=== PATIENT | female | born 1975 ===

== ENCOUNTER 2022-02-04 15:50 | Emergency (ER) | payer SELFPAY ==
[2022-02-04] MEDS ORDERED: SODIUM CHLORIDE 0.9% 1000 ML 1,000 ML IV ONE (17:12)
--- NOTE | 2022-02-04 17:49 | XRay Report ---
XR chest 1V ap INDICATION / CLINICAL INFORMATION: Altered Mental Status. COMPARISON: None available. FINDINGS: SUPPORT DEVICES: None. HEART /PULMONARY VASCULATURE: No significant abnormality. LUNGS / PLEURA: No significant pulmonary or pleural abnormality. No pneumothorax. ADDITIONAL FINDINGS: No significant additional findings. IMPRESSION: 1. No acute findings. Signer Name: Papa Ross MD Signed: 02/04/2022 5:45 PM Workstation Name: [email or web address]
[2022-02-04 20:02] LABS: Basophils % (Auto) 0.3 % (0.0-1.8); Eosinophils % (Auto) 0.1 % (0.0-4.3); Hematocrit 44.4 % (30.3-42.9); Hemoglobin 14.5 gm/dl (10.1-14.3); Lymphocytes # (Auto) 1.8 K/mm3 (1.2-5.4); Mean Corpuscular HGB Conc 33 % (30-34); Mean Corpuscular Volume 87 fl (79-97); Monocytes # (Auto) 0.3 K/mm3 (0.0-0.8); Platelet Count 330 K/mm3 (140-440); Red Blood Count 5.12 M/mm3 (3.65-5.03); Red Cell Distribution Width 14.2 % (13.2-15.2)
[2022-02-04 20:06] LABS: INR 0.92 (0.87-1.13)
[2022-02-04 20:41] LABS: Alanine Aminotransferase 11 units/L (7-56); Albumin 4.9 g/dL (3.9-5); BUN/Creatinine Ratio 12; Blood Urea Nitrogen 6 mg/dL (7-17); Calcium 8.1 mg/dL (8.4-10.2); Hemolysis Index 15
[2022-02-04] MEDS ORDERED: THIAMINE 100 MG, FOLIC ACID 1 MG, MULTIPLE VITAMIN INJ, ADULT 10 ML in SODIUM CHLORIDE ... IV ONE (20:42)
--- NOTE | 2022-02-04 20:55 | Emergency Department Report ---
<LIDIA OSPINA - Last Filed: 02/05/22 03:20> ED Alcohol HPI - General Chief Complaint: Alcohol Stated Complaint: ALTERED MENTAL STATUS Time Seen by Provider: 02/04/22 17:09 - Related Data Previous Rx's Medication Instructions Recorded Last Taken Type Multivitamin with Folic Acid [[facility] 400 mcg PO QDAY #30 tablet 02/05/22 Unknown Rx One Daily Essential Tablet] Ondansetron [Zofran Odt] 4 mg PO Q8HR PRN #20 tab.rapdis 02/05/22 Unknown Rx chlordiazePOXIDE [Librium] 25 mg PO Q6H PRN #25 capsule 02/05/22 Unknown Rx Allergies Allergy/AdvReac Type Severity Reaction Status Date / Time No Known Allergies Allergy Verified 02/04/22 16:01 ED Past Medical Hx - Medications Home Medications: Home Medications Medication Instructions Recorded Confirmed Last Taken Type Multivitamin with Folic Acid [[facility] 400 mcg PO QDAY #30 tablet 02/05/22 Unknown Rx One Daily Essential Tablet] Ondansetron [Zofran Odt] 4 mg PO Q8HR PRN #20 tab.rapdis 02/05/22 Unknown Rx chlordiazePOXIDE [Librium] 25 mg PO Q6H PRN #25 capsule 02/05/22 Unknown Rx ED Course - Reevaluation(s) Reevaluation #1: 02/05/22 03:21 Patient awake and able to stand up. She is mildly nauseous. CT scan brain and cervical spine negative for acute findings. Vital signs unremarkable. She can follow-up with outpatient primary care for incidental thyroid findings. Dehydration/metabolic acidosis, likely secondary to alcohol intoxication, as well as dehydration ED Medical Decision Making - Lab Data Result diagrams: 02/04/22 19:26 02/04/22 19:26 Vital Signs 02/04/22 02/04/22 02/04/22 15:57 16:19 16:30 Temperature Pulse Rate 95 H 92 H 94 H Respiratory 14 14 15 Rate Blood Pressure 116/69 Blood Pressure 129/77 [Left] O2 Sat by Pulse 99 99 99 Oximetry 02/04/22 02/04/22 02/04/22 16:44 16:46 17:00 Temperature 98.4 F Pulse Rate 99 H 103 H 97 H Respiratory 16 15 15 Rate Blood Pressure 117/77 117/77 116/73 Blood Pressure [Left] O2 Sat by Pulse 100 99 99 Oximetry 02/04/22 02/04/22 02/04/22 17:15 17:30 17:46 Temperature Pulse Rate 95 H 113 H 100 H Respiratory 16 17 16 Rate Blood Pressure 116/73 133/85 116/73 Blood Pressure [Left] O2 Sat by Pulse 98 99 99 Oximetry 02/04/22 02/04/22 02/04/22 18:00 18:16 18:30 Temperature Pulse Rate 106 H 116 H 99 H Respiratory 15 15 16 Rate Blood Pressure 136/86 132/79 132/84 Blood Pressure [Left] O2 Sat by Pulse 100 100 100 Oximetry 02/04/22 02/04/22 02/04/22 18:46 19:00 19:16 Temperature Pulse Rate 104 H 92 H 105 H Respiratory 17 6 L 14 Rate Blood Pressure 127/78 134/82 126/81 Blood Pressure [Left] O2 Sat by Pulse 96 97 Oximetry 02/04/22 02/04/22 02/04/22 19:30 19:46 20:00 Temperature Pulse Rate 107 H 108 H 107 H Respiratory 14 16 24 Rate Blood Pressure 132/83 132/79 128/77 Blood Pressure [Left] O2 Sat by Pulse 98 98 99 Oximetry 02/04/22 02/04/22 02/04/22 20:16 20:30 20:46 Temperature Pulse Rate 101 H 111 H 117 H Respiratory 13 16 16 Rate Blood Pressure 118/74 110/71 121/79 Blood Pressure [Left] O2 Sat by Pulse 99 97 98 Oximetry 02/04/22 02/04/22 02/04/22 21:00 21:16 21:30 Temperature Pulse Rate 123 H 117 H 118 H Respiratory 20 21 17 Rate Blood Pressure 131/81 119/83 127/79 Blood Pressure [Left] O2 Sat by Pulse 100 99 100 Oximetry 02/04/22 02/04/22 02/04/22 21:46 22:00 22:16 Temperature Pulse Rate 122 H 112 H 110 H Respiratory 16 16 15 Rate Blood Pressure 128/77 120/74 130/75 Blood Pressure [Left] O2 Sat by Pulse 99 99 99 Oximetry 02/04/22 02/04/22 02/04/22 22:30 22:42 22:45 Temperature Pulse Rate 111 H 105 H 105 H Respiratory 26 H 19 22 Rate Blood Pressure 123/74 130/75 123/74 Blood Pressure [Left] O2 Sat by Pulse 100 100 100 Oximetry 02/04/22 02/04/22 02/04/22 22:53 23:00 23:16 Temperature Pulse Rate 107 H 107 H 107 H Respiratory 13 16 18 Rate Blood Pressure 120/76 112/71 Blood Pressure [Left] O2 Sat by Pulse 99 99 99 Oximetry 02/04/22 02/04/22 02/05/22 23:30 23:45 00:06 Temperature Pulse Rate 109 H 106 H 96 H Respiratory 17 18 15 Rate Blood Pressure 118/73 118/73 112/71 Blood Pressure [Left] O2 Sat by Pulse 99 100 Oximetry 02/05/22 02/05/22 02/05/22 00:16 00:30 00:46 Temperature Pulse Rate 100 H 103 H 101 H Respiratory 11 L 16 15 Rate Blood Pressure 109/72 102/60 118/73 Blood Pressure [Left] O2 Sat by Pulse Oximetry 02/05/22 02/05/22 02/05/22 01:00 01:16 01:30 Temperature Pulse Rate 101 H 96 H 95 H Respiratory 15 14 14 Rate Blood Pressure 97/55 117/78 116/78 Blood Pressure [Left] O2 Sat by Pulse 99 98 Oximetry 02/05/22 02/05/22 02/05/22 01:46 02:00 02:16 Temperature Pulse Rate 92 H 87 87 Respiratory 14 12 14 Rate Blood Pressure 117/78 118/75 115/76 Blood Pressure [Left] O2 Sat by Pulse 99 98 98 Oximetry 02/05/22 02/05/22 02/05/22 02:30 02:46 03:00 Temperature Pulse Rate 86 92 H 98 H Respiratory 14 15 14 Rate Blood Pressure 116/79 118/77 125/79 Blood Pressure [Left] O2 Sat by Pulse 99 99 99 Oximetry Lab Results 02/04/22 02/04/22 02/04/22 Range/Units 19:26 19:26 19:26 WBC 6.5 (4.5-11.0) K/mm3 RBC 5.12 H (3.65-5.03) M/mm3 Hgb 14.5 H (10.1-14.3) gm/dl Hct 44.4 H (30.3-42.9) % MCV 87 (79-97) fl MCH 28 (28-32) pg MCHC 33 (30-34) % RDW 14.2 (13.2-15.2) % Plt Count 330 (140-440) K/mm3 Lymph % (Auto) 27.0 (13.4-35.0) % [place] % (Auto) 5.0 (0.0-7.3) % Eos % (Auto) 0.1 (0.0-4.3) % Baso % (Auto) 0.3 (0.0-1.8) % Lymph # (Auto) 1.8 (1.2-5.4) K/mm3 [place] # (Auto) 0.3 (0.0-0.8) K/mm3 Eos # (Auto) 0.0 (0.0-0.4) K/mm3 Baso # (Auto) 0.0 (0.0-0.1) K/mm3 Seg Neutrophils % 67.6 (40.0-70.0) % Seg Neutrophils # 4.4 (1.8-7.7) K/mm3 PT (12.2-14.9) Sec. INR (0.87-1.13) Sodium 147 H (137-145) mmol/L Potassium 4.0 (3.6-5.0) mmol/L Chloride 112.2 H (98-107) mmol/L Carbon Dioxide 15 L (22-30) mmol/L Anion Gap 24 mmol/L BUN 6 L (7-17) mg/dL Creatinine 0.5 L (0.6-1.2) mg/dL Estimated GFR > 60 ml/min BUN/Creatinine Ratio 12 % Glucose 107 H (65-100) mg/dL Calcium 8.1 L (8.4-10.2) mg/dL Magnesium 2.10 (1.7-2.3) mg/dL Total Bilirubin 0.20 (0.1-1.2) mg/dL AST 17 (5-40) units/L ALT 11 (7-56) units/L Alkaline Phosphatase 113 (35-129) units/L Total Creatine Kinase 90 (30-135) units/L Troponin T < 0.010 (0.00-0.029) ng/mL Total Protein 7.5 (6.3-8.2) g/dL Albumin 4.9 (3.9-5) g/dL Albumin/Globulin Ratio 1.9 % Lipase 24 (13-60) units/L Salicylates (2.8-20.0) mg/dL Acetaminophen (10.0-30.0) ug/mL Plasma/Serum Alcohol 0.21 H (0-0.07) % 02/04/22 02/04/22 02/04/22 Range/Units 19:26 19:26 19:26 WBC (4.5-11.0) K/mm3 RBC (3.65-5.03) M/mm3 Hgb (10.1-14.3) gm/dl Hct (30.3-42.9) % MCV (79-97) fl MCH (28-32) pg MCHC (30-34) % RDW (13.2-15.2) % Plt Count (140-440) K/mm3 Lymph % (Auto) (13.4-35.0) % [place] % (Auto) (0.0-7.3) % Eos % (Auto) (0.0-4.3) % Baso % (Auto) (0.0-1.8) % Lymph # (Auto) (1.2-5.4) K/mm3 [place] # (Auto) (0.0-0.8) K/mm3 Eos # (Auto) (0.0-0.4) K/mm3 Baso # (Auto) (0.0-0.1) K/mm3 Seg Neutrophils % (40.0-70.0) % Seg Neutrophils # (1.8-7.7) K/mm3 PT 13.6 (12.2-14.9) Sec. INR 0.92 (0.87-1.13) Sodium (137-145) mmol/L Potassium (3.6-5.0) mmol/L Chloride (98-107) mmol/L Carbon Dioxide (22-30) mmol/L Anion Gap mmol/L BUN (7-17) mg/dL Creatinine (0.6-1.2) mg/dL Estimated GFR ml/min BUN/Creatinine Ratio % Glucose (65-100) mg/dL Calcium (8.4-10.2) mg/dL Magnesium (1.7-2.3) mg/dL Total Bilirubin (0.1-1.2) mg/dL AST (5-40) units/L ALT (7-56) units/L Alkaline Phosphatase (35-129) units/L Total Creatine Kinase (30-135) units/L Troponin T (0.00-0.029) ng/mL Total Protein (6.3-8.2) g/dL Albumin (3.9-5) g/dL Albumin/Globulin Ratio % Lipase (13-60) units/L Salicylates < 0.3 L (2.8-20.0) mg/dL Acetaminophen 5.0 L (10.0-30.0) ug/mL Plasma/Serum Alcohol (0-0.07) % - EKG Data -: EKG Interpreted by [place] EKG shows normal: sinus rhythm Rate: normal - EKG Data 02/05/22 03:20 The EKG is interpreted at 16: 22 Sinus rhythm, with a rate of 89 bpm. Normal axis, normal P wave axis, motion artifact, QTC 4 9 0 milliseconds, no STEMI, nonspecific T wave abnormalities - Radiology Data Radiology results: pending, report reviewed, image reviewed XR chest 1V ap INDICATION / CLINICAL INFORMATION: Altered Mental Status. COMPARISON: None available. FINDINGS: SUPPORT DEVICES: None. HEART /PULMONARY VASCULATURE: No significant abnormality. LUNGS / PLEURA: No significant pulmonary or pleural abnormality. No pneumothorax. ADDITIONAL FINDINGS: No significant additional findings. IMPRESSION: 1. No acute findings. Signer Name: Papa Ross MD Signed: 02/04/2022 4:45 PM Workstation Name: [id number] CT CERVICAL SPINE WITHOUT CONTRAST INDICATION / CLINICAL INFORMATION: Alcohol intoxication. Found unresponsive. TECHNIQUE: Axial CT images were obtained through the cervical spine. Sagittal and coronal reformatted images were produced. All CT scans at this location are performed using CT dose reduction for ALARA by means of automated exposure control. COMPARISON: None available. FINDINGS: MANDIBLE: No significant abnormality of the visualized mandible or TMJs. SKULL BASE: No significant abnormality of the skull base. CRANIOCERVICAL JUNCTION: No significant abnormality of the craniocervical junction. CERVICAL SPINE: Cervical spine demonstrates normal alignment without evidence of acute fracture. No severe central stenosis. SOFT TISSUES: No significant abnormality of soft tissues or musculature. THYROID: 12 mm left thyroid nodule without obvious calcification. UPPER CHEST: No significant abnormality of the visualized chest. ADDITIONAL FINDINGS: None. IMPRESSION: 1. No evidence of acute osseous injury. 2. 12 mm left thyroid nodule. Nonemergent outpatient ultrasound recommended for further characterization. Signer Name: Nhan De Leon II, MD Signed: 02/05/2022 12:13 AM Workstation Name: [employer] CT HEAD WITHOUT CONTRAST INDICATION / CLINICAL INFORMATION: Alcohol intoxication. Found unresponsive. TECHNIQUE: CT head was performed without administration of intravenous contrast. All CT scans at this location are performed using CT dose reduction for ALARA by means of automated exposure control. COMPARISON: None available. FINDINGS: CEREBRAL HEMISPHERES: There is no evidence of large territorial infarction or significant abnormality of dixon- white matter differentiation. Ventricles within normal limits. No midline shift. Basal cisterns patent. HEMORRHAGE: None. CEREBELLUM / BRAINSTEM: No significant abnormality. ORBITS: No significant abnormality. SOFT TISSUES: No significant abnormality. SKULL: No significant abnormality. PARANASAL SINUSES / MASTOID AIR CELLS: Normal as visualized. ADDITIONAL FINDINGS: None. IMPRESSION: 1. No acute intracranial abnormality. Signer Name: Nhan De Leon II, MD Signed: 02/05/2022 12:14 AM Workstation Name: [employer] ED Disposition Clinical Impression: Alcohol abuse, Alcohol intoxication, Dehydration, Thyroid nodule Disposition: 01 HOME / SELF CARE / HOMELESS Is pt being admited?: No Does the pt Need Aspirin: No Condition: Good Additional Instructions: Please follow-up with an outpatient primary care doctor within the next week. Please have your primary care doctor contact the medical records department to obtain copies of laboratory studies and radiology studies, to follow-up on nonemergent incidental abnormal findings. Avoid consumption of alcohol, tobacco and smoke products. Take multivitamin as directed. Take the Zofran medication as needed for nausea and vomiting. Take the Librium medication as needed for sensation of alcohol withdrawal if you are an alcoholic. Please return to the emergency room right away with new pain, worsened pain, migration of pain, projectile vomiting, change in mental status, confusion, inability tolerate liquid feeds, new, worsened or different symptoms not present on the initial emergency room evaluation Prescriptions: Multivitamin with Folic Acid [[facility] One Daily Essential Tablet] 400 mcg PO QDAY #30 tablet chlordiazePOXIDE [Librium] 25 mg PO Q6H PRN #25 capsule PRN Reason: Alcohol Withdrawal Ondansetron [Zofran Odt] 4 mg PO Q8HR PRN #20 tab.rapdis PRN Reason: Nausea Referrals: MATTHEW PEPPER MD [Primary Care Provider] - 3-5 Days <STANLEY LAINEZ - Last Filed: 02/05/22 22:13> ED Alcohol HPI - General Source: patient, EMS Mode of arrival: Stretcher Limitations: Altered Mental Status - History of Present Illness Initial Comments: PT ARRIVING FROM HOME; EMS REPORTS FOUND UNCONSCIOUS & UNRESPONSIVE. POSSIBLY DRANK A BOTTLE OF LIQUOR (EMPTY BOTTLE FOUND NEAR PT). MD Complaint: alcohol intoxication Last Drink: just [employer] Chronic Alcohol Use: No Previous Visits for Alcohol Intoxication?: Yes Associated Symptoms: denies: denies other symptoms, nausea, vomiting, syncope Treatments Prior to Arrival: none ED Review of Systems ROS: Stated complaint: ALTERED MENTAL STATUS Other details as noted in HPI Constitutional: denies: chills, fever Eyes: denies: eye pain, eye discharge, vision change ENT: denies: ear pain, throat pain Respiratory: denies: cough, shortness of breath, wheezing Cardiovascular: denies: chest pain, palpitations Endocrine: no symptoms reported Gastrointestinal: denies: abdominal pain, nausea, diarrhea Genitourinary: denies: urgency, dysuria, discharge Musculoskeletal: denies: back pain, joint swelling, arthralgia Skin: denies: rash, lesions Neurological: denies: headache, weakness, paresthesias Psychiatric: denies: anxiety, depression Hematological/Lymphatic: denies: easy bleeding, easy bruising ED Past Medical Hx - Past Medical History Previous Medical History?: No Hx Hypertension: No - Social History Smoking Status: Never Smoker Substance Use Type: Alcohol ED Physical Exam - General Limitations: Altered Mental Status General appearance: alert, appears intoxicated - Head Head exam: Present: atraumatic, normocephalic - Eye Eye exam: Present: normal appearance - ENT ENT exam: Present: mucous membranes moist - Neck Neck exam: Present: normal inspection - Respiratory Respiratory exam: Present: normal lung sounds bilaterally. Absent: respiratory distress - Cardiovascular Cardiovascular Exam: Present: regular rate, normal rhythm. Absent: systolic murmur, diastolic murmur, rubs, gallop - GI/Abdominal GI/Abdominal exam: Present: soft, normal bowel sounds - Extremities Exam Extremities exam: Present: normal inspection - Back Exam Back exam: Present: normal inspection - Psychiatric Psychiatric exam: Present: normal affect, normal mood - Skin Skin exam: Present: warm, dry, intact, normal color. Absent: rash ED Course Vital Signs 02/04/22 02/04/22 02/04/22 15:57 16:19 16:30 Temperature Pulse Rate 95 H 92 H 94 H Respiratory 14 14 15 Rate Blood Pressure 116/69 Blood Pressure 129/77 [Left] O2 Sat by Pulse 99 99 99 Oximetry 02/04/22 02/04/22 02/04/22 16:44 16:46 17:00 Temperature 98.4 F Pulse Rate 99 H 103 H 97 H Respiratory 16 15 15 Rate Blood Pressure 117/77 117/77 116/73 Blood Pressure [Left] O2 Sat by Pulse 100 99 99 Oximetry 02/04/22 02/04/22 02/04/22 17:15 17:30 17:46 Temperature Pulse Rate 95 H 113 H 100 H Respiratory 16 17 16 Rate Blood Pressure 116/73 133/85 116/73 Blood Pressure [Left] O2 Sat by Pulse 98 99 99 Oximetry 02/04/22 02/04/22 02/04/22 18:00 18:16 18:30 Temperature Pulse Rate 106 H 116 H 99 H Respiratory 15 15 16 Rate Blood Pressure 136/86 132/79 132/84 Blood Pressure [Left] O2 Sat by Pulse 100 100 100 Oximetry 02/04/22 02/04/22 02/04/22 18:46 19:00 19:16 Temperature Pulse Rate 104 H 92 H 105 H Respiratory 17 6 L 14 Rate Blood Pressure 127/78 134/82 126/81 Blood Pressure [Left] O2 Sat by Pulse 96 97 Oximetry 02/04/22 02/04/22 02/04/22 19:30 19:46 20:00 Temperature Pulse Rate 107 H 108 H 107 H Respiratory 14 16 24 Rate Blood Pressure 132/83 132/79 128/77 Blood Pressure [Left] O2 Sat by Pulse 98 98 99 Oximetry 02/04/22 02/04/22 02/04/22 20:16 20:30 20:46 Temperature Pulse Rate 101 H 111 H 117 H Respiratory 13 16 16 Rate Blood Pressure 118/74 110/71 121/79 Blood Pressure [Left] O2 Sat by Pulse 99 97 98 Oximetry 02/04/22 02/04/22 02/04/22 21:00 21:16 21:30 Temperature Pulse Rate 123 H 117 H 118 H Respiratory 20 21 17 Rate Blood Pressure 131/81 119/83 127/79 Blood Pressure [Left] O2 Sat by Pulse 100 99 100 Oximetry 02/04/22 02/04/22 02/04/22 21:46 22:00 22:16 Temperature Pulse Rate 122 H 112 H 110 H Respiratory 16 16 15 Rate Blood Pressure 128/77 120/74 130/75 Blood Pressure [Left] O2 Sat by Pulse 99 99 99 Oximetry 02/04/22 02/04/22 02/04/22 22:30 22:42 22:45 Temperature Pulse Rate 111 H 105 H 105 H Respiratory 26 H 19 22 Rate Blood Pressure 123/74 130/75 123/74 Blood Pressure [Left] O2 Sat by Pulse 100 100 100 Oximetry 02/04/22 02/04/22 02/04/22 22:53 23:00 23:16 Temperature Pulse Rate 107 H 107 H 107 H Respiratory 13 16 18 Rate Blood Pressure 120/76 112/71 Blood Pressure [Left] O2 Sat by Pulse 99 99 99 Oximetry 02/04/22 02/04/22 02/05/22 23:30 23:45 00:06 Temperature Pulse Rate 109 H 106 H 96 H Respiratory 17 18 15 Rate Blood Pressure 118/73 118/73 112/71 Blood Pressure [Left] O2 Sat by Pulse 99 100 Oximetry 02/05/22 02/05/22 02/05/22 00:16 00:30 00:46 Temperature Pulse Rate 100 H 103 H 101 H Respiratory 11 L 16 15 Rate Blood Pressure 109/72 102/60 118/73 Blood Pressure [Left] O2 Sat by Pulse Oximetry 02/05/22 02/05/22 02/05/22 01:00 01:16 01:30 Temperature Pulse Rate 101 H 96 H 95 H Respiratory 15 14 14 Rate Blood Pressure 97/55 117/78 116/78 Blood Pressure [Left] O2 Sat by Pulse 99 98 Oximetry 02/05/22 02/05/22 02/05/22 01:46 02:00 02:16 Temperature Pulse Rate 92 H 87 87 Respiratory 14 12 14 Rate Blood Pressure 117/78 118/75 115/76 Blood Pressure [Left] O2 Sat by Pulse 99 98 98 Oximetry 02/05/22 02/05/22 02/05/22 02:30 02:46 03:00 Temperature Pulse Rate 86 92 H 98 H Respiratory 14 15 14 Rate Blood Pressure 116/79 118/77 125/79 Blood Pressure [Left] O2 Sat by Pulse 99 99 99 Oximetry ED Medical Decision Making - Lab Data Result diagrams: 02/04/22 19:26 02/04/22 19:26 - Radiology Data Radiology results: report reviewed, image reviewed - Medical Decision Making work up shwoed etoh of 210, fluids givena nd banana bag Critical care attestation.: If time is entered above; I have spent that time in minutes in the direct care of this critically ill patient, excluding procedure time. ED Disposition Is pt being admited?: No Does the pt Need Aspirin: No
--- NOTE | 2022-02-05 01:17 | Cat Scan Report ---
CT CERVICAL SPINE WITHOUT CONTRAST INDICATION / CLINICAL INFORMATION: Alcohol intoxication. Found unresponsive. TECHNIQUE: Axial CT images were obtained through the cervical spine. Sagittal and coronal reformatted images were produced. All CT scans at this location are performed using CT dose reduction for ALARA by means of automated exposure control. COMPARISON: None available. FINDINGS: MANDIBLE: No significant abnormality of the visualized mandible or TMJs. SKULL BASE: No significant abnormality of the skull base. CRANIOCERVICAL JUNCTION: No significant abnormality of the craniocervical junction. CERVICAL SPINE: Cervical spine demonstrates normal alignment without evidence of acute fracture. No s evere central stenosis. SOFT TISSUES: No significant abnormality of soft tissues or musculature. THYROID: 12 mm left thyroid nodule without obvious calcification. UPPER CHEST: No significant abnormality of the visualized chest. ADDITIONAL FINDINGS: None. IMPRESSION: 1. No evidence of acute osseous injury. 2. 12 mm left thyroid nodule. Nonemergent outpatient ultrasound recommended for further characterizat ion. Signer Name: Nhan De Leon II, MD Signed: 02/05/2022 1:13 AM Workstation Name: [id number]
--- NOTE | 2022-02-05 01:18 | Cat Scan Report ---
CT HEAD WITHOUT CONTRAST INDICATION / CLINICAL INFORMATION: Alcohol intoxication. Found unresponsive. TECHNIQUE: CT head was performed without administration of intravenous contrast. All CT scans at this location are performed using CT dose reduction for ALARA by means of automated exposure control. COMPARISON: None available. FINDINGS: CEREBRAL HEMISPHERES: There is no evidence of large territorial infarction or significant abnormality of dixon-white matter differentiation. Ventricles within normal limits. No midline shift. Basal ciste rns patent. HEMORRHAGE: None. CEREBELLUM / BRAINSTEM: No significant abnormality. ORBITS: No significant abnormality. SOFT TISSUES: No significant abnormality. SKULL: No significant abnormality. PARANASAL SINUSES / MASTOID AIR CELLS: Normal as visualized. ADDITIONAL FINDINGS: None. IMPRESSION: 1. No acute intracranial abnormality. Signer Name: Nhan De Leon II, MD Signed: 02/05/2022 1:14 AM Workstation Name: [id number]
[2022-02-05 03:06] VITALS: BP 125/79
--- NOTE | 2022-02-06 17:21 | Electrocardiograph Report ---
[facility] Test Date: 2022-02-04 Test Time: 16:22:57 Pat Name: HERB MENA Department: Room: Gender: F Business Information Consultant: RADHA : 1975 Requested By: STANLEY LAINEZ Order Number: [id number] Reading MD: Venkatesh Parra Measurements Intervals [place] Rate: 89 P: 57 FL: 158 QRS: 76 QRSD: 93 T: 19 QT: 403 QTc: 490 Interpretive Statements Sinus rhythm Low voltage, precordial leads Nonspecific T abnormalities, anterior leads No previous ECG available for comparison Electronically Signed On 02-06-2022 17:21:40 EDT by Venkatesh Parra
== END 2022-02-05 03:39 | disposition home or self-care (01) ==
LOC: ED 15:50
DX: F10.10 Alcohol abuse, uncomplicated (principal); F10.129 Alcohol abuse with intoxication, unspecified; E86.0 Dehydration; E04.1 Nontoxic single thyroid nodule
CPT/HCPCS: 36415; 70450; 71045; 72125; 80053; 82550; 83690; 83735; 84484; 85025; 85610; 93005; 96361; 96365; 96375; 99285; J3411; J3490; J7030; 80320; G0480